=== PATIENT | female | born 1980 | race Caucasian/White ===

== ENCOUNTER → 2023-11-03 06:35 | Day surgery (SDC) | payer OTHER, SELFPAY | LOC: GI 06:35 | PROVIDERS: ATTENDING PHYSICIAN Internal Medicine Gastroenterology | DX: Z12.11 Encounter for screening for malignant neoplasm of colon (principal); K57.30 Diverticulosis of large intestine without perforation or abscess without bleeding; Z83.719 Family history of colon polyps, unspecified | CPT/HCPCS: 45380; 88305 ==

== ENCOUNTER → 2023-11-12 12:24 | Outpatient (REF) | payer OTHER, SELFPAY ==
[2023-11-12 13:20] LABS: % Basophils 0.6 % (0-2); % Eosinophils 0.6 % (0-6); % Immature Granulocytes 0.4 % (0-0.5); % Lymphocytes 16.3 % (20.5-51.1); % Monocytes 6.2 % (1.7-9.3); % Neutrophils 75.9 % (42.2-75.2); Absolute Lymphocytes 1.2 10^3/uL (1.2-3.4); Absolute Monocytes 0.4 10^3/uL (0.1-0.6); Absolute Neutrophils 5.4 10^3/uL (1.4-6.5); Hematocrit 38.8 % (37.0-47.0); Hemoglobin 12.8 g/dL (12.0-16.0); Mean Corpuscular Hgb 28.8 pg (27.0-31.0); Mean Corpuscular Volume 87.4 fL (81.0-99.0); Mean Platelet Volume 11.4 fL (7.4-10.4); Nucleated Red Blood Cells % 0 %; Platelet Count 240 10^3/uL (130-400); Red Blood Cell Count 4.44 10^6/uL (4.20-5.40); Red Cell Dist. Width 12.5 % (11.5-14.5); White Blood Cell Count 7.1 10^3/uL (4.8-10.8)
[2023-11-12 14:37] LABS: ALT (SGPT) 19 U/L (0-35); AST (SGOT) 23 U/L (14-36); Albumin 4.4 g/dl (3.5-5.0); Alkaline Phosphatase 57 U/L (38-126); Blood Urea Nitrogen 16 mg/dl (7-17); Carbon Dioxide 31 mmol/L (22-30); Chloride 98 mmol/L (98-107); Glucose 101 mg/dl (70-99); Potassium 4.1 mmol/L (3.5-5.1); Sodium 136 mmol/L (135-145); Total Bilirubin 0.4 mg/dl (0.2-1.3); Total Protein 7.3 g/dl (6.3-8.2); eGFR > 60.00
[2023-11-14 18:50] LABS: CA 27-29 14.4 U/mL (<=39.0)
== END ==
LOC: REG 12:24
PROVIDERS: ATTENDING PHYSICIAN Internal Medicine Hematology & Oncology
DX: C50.411 Malignant neoplasm of upper-outer quadrant of right female breast (principal)
CPT/HCPCS: 36415; 80053; 85025; 86300

== ENCOUNTER → 2023-11-27 09:15 | Outpatient (REF) | payer OTHER, SELFPAY | LOC: WDC 09:15 | PROVIDERS: ATTENDING PHYSICIAN Internal Medicine Hematology & Oncology; FAMILY PHYSICIAN Family Medicine | DX: C50.411 Malignant neoplasm of upper-outer quadrant of right female breast (principal); Z12.31 Encounter for screening mammogram for malignant neoplasm of breast | CPT/HCPCS: 71260; 74177; 77063; 77067; 78306; A9503; Q9967 ==

== ENCOUNTER 2024-01-25 07:26 | Emergency (ER) | payer OTHER, SELFPAY ==
[2024-01-25 07:34] VITALS: BP 119/69
[2024-01-25 07:44] VITALS: BMI 32.8
[2024-01-25 07:45] VITALS: BP 118/72
--- NOTE | 2024-01-25 07:51 | PTCARENOTE ---
Pt woke up this morning with pressure in right ear; states 'feeling clogged.' Describing pressure and numbness in right ear to jaw; 'like my ears have to pop on an airplane. States feeling of 'clogged' right ear for a few nights when sleeping on
right side.
--- NOTE | 2024-01-25 08:16 | ED.GENMED ---
History of Present Illness
General
Chief Complaint: Ear Problem
Source: patient and spouse
Exam Limitations: none
Time Seen by Provider: 01/25/24 07:44
Nursing documentation reviewed up to this point in time: agreed with
Travel History
Have you had any contact with someone who has COVID-19?: No
Do you have any symptoms of coronavirus? Fever > 100 degrees, chills, cough, shortness of breath, sore throat, loss of taste or smell, muscle aches, or headache?: No
History of Present Illness
History of Present Illness:
43-year-old female with a history as documented presents for evaluation of fullness in the right ear. Patient reports that she woke up this morning and felt like her right ear was clogged. She says she has some sense of fullness in the right side
of her face/anterior to her ear. She says she is having trouble hearing out of the right ear. Came to the emergency room for assessment. She denies any trauma to the ear. She denies any pain in the ear. She denies any other complaints. She
says she has had this issue before in the right ear but says it is usually transient and this morning it does not seem to be going away.
Past History
Past History
ED Past Medical History: Asthma and Cancer
ED Past Surgical History: None
Social History
Tobacco: Non-smoker
Alcohol: None
Drug: None
Review of Systems
Review of Systems
All Other Systems: ROS reviewed and negative except as documented in HPI and ROS
EENT: Reports other (Fullness/hearing loss in the right ear)
Phy Exam
Physical Exam
Physical Exam:
General: Well appearing and non-toxic
HEENT: protecting airway; left TM clear; right ear canal with large cerumen impaction (*UPDATE*: After removal of cerumen impaction patient has some slight retraction but no erythema, no perforation, no fluid in the inner ear on exam of the right TM)
Neck: appears supple
CV: No evidence of cyanosis
Resp: No accessory muscle use
Abd: Non-distended
Extremities: No deformities
Neuro: Alert
Psych: Normal affect
Skin: Intact
Scores
Heart Failure Risk
Heart Failure Risk Score: Not Applicable
Heart Score for Chest Pain Patients
STEMI patient?: Not applicable
Withdrawal Assessment of Alcohol
Withdrawal Assessment Completed?: Not applicable
Course
Vital Signs
Initial and Last Documented VS:
Initial Vital Signs
Temp Pulse Resp BP Pulse Ox
36.7 C 72 16 119/69 98
01/25/24 07:34 01/25/24 07:34 01/25/24 07:34 01/25/24 07:34 01/25/24 07:34
Last Documented Vital Signs
Temp Pulse Resp BP Pulse Ox
36.5 C 69 16 118/72 99
01/25/24 07:45 01/25/24 07:45 01/25/24 07:45 01/25/24 07:45 01/25/24 07:45
Procedures
Foreign Body Removal-Ear
Right External canal:
Tenderness: none
Any local drainage: none
External ear canal cleaned with removal of cerumen using: irrigation
Removal of foreign body using: irrigation
Exam of canal after removal: no inflammation
Additional Information:
Cerumen impaction cleared with irrigation using tepid water
MDM/Problems Addressed
Differential Diagnosis Includes:
Cerumen impaction, middle ear effusion
MDM/Problems Addressed:
43-year-old female presents with sensation of clogged right ear and hearing loss. On exam she was found to have a cerumen impaction. It was cleared with irrigation. After clearing cerumen impaction patient's symptoms completely resolved.
Discharged with instructions to avoid cotton swab use, Debrox as needed. All questions answered.
*Pulse Oximetry
Patient hypoxic: no
*Critical Care Note
Total Time (30-74mins, 75-104mins- exclusive of procedures): Not Applicable
Data Reviewed
Source: patient and spouse
ED Attending Note
-
Portions of this chart may have been created with voice recognition software.� Occasional wrong word or��sound alike� substitutions may have occurred due to the inherent limitations of voice recognition software.
Discharge Plan
Departure
Patient Disposition: Home (Routine Discharge)
Date of Disposition: 01/25/24
Time of Disposition: 08:15
Patient with high blood pressure during this ER visit?: No
Discharge Problem:
Impacted cerumen of right ear
Instructions: Ear wax impaction
Prescriptions:
New
Ear Wax Removal Kit 6.5 % drops
5 drp otic (ear) DAILY 4 Days Qty: 15 0RF
No Action
lorazepam 0.5 MG tablet
1 mg PO HS
cannabidiol [Epidiolex] 1 UNIT solution
1 unit PO HS
albuterol sulfate 1 PUFF HFA aerosol inhaler
2 puff inhalation R Q4HPRN PRN (Reason: asthma)
cetirizine [Zyrtec] 10 MG tablet
10 mg PO DAILY PRN (Reason: allergies)
Referrals:
Jairo Stark MD [Active] - As needed (Ear, nose, and throat doctor)
Activity Restrictions/Additional Instructions:
Thank you for visiting the Emergency Department at [facility].
1. Please schedule a follow up appointment as directed. Call first thing tomorrow morning to make an appointment.
2. If indicated, please take your medications as instructed and indicated on discharge paperwork.
3. If any of your symptoms do not improve, or persist, or become more severe within 6-12 hours, please return to the emergency department for further care.
4. Please return to the emergency department if you develop a headache, neck pain/stiffness, fever greater than 100.4F, chest pain, shortness of breath, persistent nausea, vomiting, slurred speech, difficulty walking, numbness/tingling, weakness,
signs of infection or any other symptoms that are worrisome to you.
Please call [phone] if you have any questions.
Interventions
Interventions:
*Risk Screen - Suicide Last Done: 01/25/24 08:18
*General Assessment Last Done: 01/25/24 08:18
*Neglect/Abuse Screening Last Done: 01/25/24 08:18
ED- Fall Risk Assessment Last Done: 01/25/24 08:18
*ED COVID-19 Vaccine History Last Done: 01/25/24 07:34
*Nursing Disposition Last Done: 01/25/24 08:18
Discharge Date and Time
Print Language: IRANIAN
== END 2024-01-25 08:24 | disposition home or self-care (01) ==
LOC: EMR 07:26
PROVIDERS: EMERGENCY PHYSICIAN Emergency Medicine; FAMILY PHYSICIAN Family Medicine
DX: H61.21 Impacted cerumen, right ear (principal)
CPT/HCPCS: 99283; 69200

== ENCOUNTER → 2024-06-17 07:38 | Outpatient (REF) | payer OTHER, SELFPAY ==
[2024-06-17 08:49] LABS: % Basophils 0.7 % (0-2); % Eosinophils 1.1 % (0-6); % Immature Granulocytes 0.5 % (0-0.5); % Lymphocytes 20.3 % (20.5-51.1); % Monocytes 7.2 % (1.7-9.3); % Neutrophils 70.2 % (42.2-75.2); Absolute Eosinophils 0.1 10^3/uL (0-0.7); Absolute Lymphocytes 0.9 10^3/uL (1.2-3.4); Absolute Monocytes 0.3 10^3/uL (0.1-0.6); Absolute Neutrophils 3.1 10^3/uL (1.4-6.5); Hematocrit 39.3 % (37.0-47.0); Hemoglobin 12.9 g/dL (12.0-16.0); Mean Corp Hgb Conc. 32.8 g/dL (33.0-37.0); Mean Corpuscular Hgb 28.9 pg (27.0-31.0); Mean Corpuscular Volume 88.1 fL (81.0-99.0); Mean Platelet Volume 12.3 fL (7.4-10.4); Nucleated Red Blood Cells % 0 %; Platelet Count 203 10^3/uL (130-400); Red Blood Cell Count 4.46 10^6/uL (4.20-5.40); Red Cell Dist. Width 12.4 % (11.5-14.5); White Blood Cell Count 4.4 10^3/uL (4.8-10.8)
[2024-06-17 09:19] LABS: ALT (SGPT) 17 U/L (0-35); AST (SGOT) 19 U/L (14-36); Albumin 4.6 g/dl (3.5-5.0); Alkaline Phosphatase 49 U/L (38-126); Blood Urea Nitrogen 16 mg/dl (7-17); Calcium 9.7 mg/dl (8.4-10.2); Carbon Dioxide 27 mmol/L (22-30); Chloride 102 mmol/L (98-107); Glucose 121 mg/dl (70-99); Potassium 4.8 mmol/L (3.5-5.1); Sodium 141 mmol/L (135-145); Total Bilirubin 0.3 mg/dl (0.2-1.3); Total Protein 6.9 g/dl (6.3-8.2); eGFR > 60.00
[2024-06-18 22:59] LABS: CA 27-29 23.1 U/mL (<=39.0)
== END ==
LOC: REG 07:38
PROVIDERS: ATTENDING PHYSICIAN Internal Medicine Hematology & Oncology; FAMILY PHYSICIAN Family Medicine
DX: C50.411 Malignant neoplasm of upper-outer quadrant of right female breast (principal)
CPT/HCPCS: 36415; 80053; 85025; 86300

== ENCOUNTER → 2024-07-08 14:14 | Outpatient (REF) | payer OTHER, SELFPAY | LOC: RAD 14:14 | PROVIDERS: ATTENDING PHYSICIAN Nurse Practitioner Adult Health; FAMILY PHYSICIAN Family Medicine | DX: C50.411 Malignant neoplasm of upper-outer quadrant of right female breast (principal) | CPT/HCPCS: 72040; 72072; 72100 ==

== ENCOUNTER → 2024-08-18 07:50 | Outpatient (REF) | payer BC, SELFPAY | LOC: WDC 07:50 | PROVIDERS: ATTENDING PHYSICIAN Family Medicine Geriatric Medicine; FAMILY PHYSICIAN Family Medicine | DX: R92.2 Inconclusive mammogram (principal); R92.30 Dense breasts, unspecified | CPT/HCPCS: 76641 ==

== ENCOUNTER → 2024-09-15 08:32 | Outpatient (REF) | payer OTHER, SELFPAY ==
[2024-09-15 10:32] LABS: Iron 133 ug/dl (37-170)
[2024-09-15 10:41] LABS: Percent Saturation 54 % (20-50); Total Iron Binding Capacity 244 ug/dl (265-497)
[2024-09-15 11:01] LABS: Vitamin D, 25-OH*** 17.5 ng/mL (30-80)
[2024-09-15 11:14] LABS: TSH Reflex To Free T4 2.74 uIU/ml (0.47-4.68)
[2024-09-15 17:20] LABS: Folate 10.1 ng/ml (2.76-20); Vitamin B12 414 pg/ml (239-931)
[2024-09-17 14:35] LABS: CA 27-29 19.1 U/mL (<=39.0)
== END ==
LOC: REG 08:32
PROVIDERS: ATTENDING PHYSICIAN Nurse Practitioner Adult Health; FAMILY PHYSICIAN Family Medicine
DX: C50.411 Malignant neoplasm of upper-outer quadrant of right female breast (principal)
CPT/HCPCS: 36415; 82306; 82607; 82728; 82746; 83540; 83550; 84443; 86300

== ENCOUNTER → 2024-11-14 08:08 | Outpatient (REF) | payer BC, SELFPAY ==
[2024-11-14 09:53] LABS: % Basophils 0.5 % (0-2); % Eosinophils 0.9 % (0-6); % Immature Granulocytes 0.5 % (0-0.5); % Lymphocytes 19.6 % (20.5-51.1); % Monocytes 7.1 % (1.7-9.3); % Neutrophils 71.4 % (42.2-75.2); Absolute Eosinophils 0.1 10^3/uL (0-0.7); Absolute Lymphocytes 1.1 10^3/uL (1.2-3.4); Absolute Monocytes 0.4 10^3/uL (0.1-0.6); Absolute Neutrophils 3.9 10^3/uL (1.4-6.5); Hematocrit 42.1 % (37.0-47.0); Hemoglobin 13.1 g/dL (12.0-16.0); Mean Corp Hgb Conc. 31.1 g/dL (33.0-37.0); Mean Platelet Volume 11.3 fL (7.4-10.4); Nucleated Red Blood Cells % 0 %; Platelet Count 225 10^3/uL (130-400); Red Blood Cell Count 4.68 10^6/uL (4.20-5.40); Red Cell Dist. Width 12.2 % (11.5-14.5); White Blood Cell Count 5.5 10^3/uL (4.8-10.8)
[2024-11-14 10:28] LABS: ALT (SGPT) 15 U/L (0-35); AST (SGOT) 18 U/L (14-36); Albumin 4.5 g/dl (3.5-5.0); Alkaline Phosphatase 62 U/L (38-126); Blood Urea Nitrogen 12 mg/dl (7-17); Carbon Dioxide 31 mmol/L (22-30); Chloride 102 mmol/L (98-107); Glucose 126 mg/dl (70-99); Potassium 4.6 mmol/L (3.5-5.1); Sodium 137 mmol/L (135-145); Total Bilirubin 0.6 mg/dl (0.2-1.3); eGFR > 60.00
[2024-11-15 14:15] LABS: CA 27-29 28.3 U/mL (<=39.0)
== END ==
LOC: RAD 08:08
PROVIDERS: ATTENDING PHYSICIAN Internal Medicine Hematology & Oncology; FAMILY PHYSICIAN Family Medicine; OTHER PHYSICIAN Nurse Practitioner Adult Health
DX: C50.411 Malignant neoplasm of upper-outer quadrant of right female breast (principal)
CPT/HCPCS: 36415; 71260; 74177; 78306; 80053; 85025; 86300; A9503; Q9967

== ENCOUNTER → 2024-12-06 17:59 | Outpatient (REF) | payer BC, SELFPAY | LOC: WDC 17:59 | PROVIDERS: ATTENDING PHYSICIAN Nurse Practitioner Adult Health; FAMILY PHYSICIAN Family Medicine | DX: Z12.31 Encounter for screening mammogram for malignant neoplasm of breast (principal) | CPT/HCPCS: 77063; 77067 ==

== ENCOUNTER → 2024-12-14 08:49 | Outpatient (REF) | payer BC, SELFPAY | LOC: WDC 08:49 | PROVIDERS: ATTENDING PHYSICIAN Nurse Practitioner Adult Health; FAMILY PHYSICIAN Family Medicine | DX: R92.8 Other abnormal and inconclusive findings on diagnostic imaging of breast (principal) | CPT/HCPCS: 76642; 77065 ==

== ENCOUNTER → 2024-12-20 06:40 | Outpatient (REF) | payer BC, SELFPAY | LOC: WDC 06:40 | PROVIDERS: ATTENDING PHYSICIAN Nurse Practitioner Adult Health; FAMILY PHYSICIAN Family Medicine | DX: R92.1 Mammographic calcification found on diagnostic imaging of breast (principal); R92.8 Other abnormal and inconclusive findings on diagnostic imaging of breast | CPT/HCPCS: 88305; 19083; A4648 ==

== ENCOUNTER → 2025-05-30 06:46 | Outpatient (REF) | payer BC, SELFPAY ==
[2025-05-30 07:32] LABS: Hematocrit 38.3 % (37.0-47.0); Hemoglobin 12.1 g/dL (12.0-16.0); Mean Corp Hgb Conc. 31.6 g/dL (33.0-37.0); Mean Corpuscular Volume 86.8 fL (81.0-99.0); Nucleated Red Blood Cells % 0 %; Platelet Count 180 10^3/uL (130-400); Red Cell Dist. Width 12.5 % (11.5-14.5)
[2025-05-30 08:03] LABS: ALT (SGPT) 14 U/L (0-35); AST (SGOT) 16 U/L (14-36); Albumin 4.3 g/dl (3.5-5.0); Alkaline Phosphatase 54 U/L (38-126); Blood Urea Nitrogen 14 mg/dl (7-17); Calcium 9.2 mg/dl (8.4-10.2); Carbon Dioxide 30 mmol/L (22-30); Chloride 104 mmol/L (98-107); Glucose 123 mg/dl (70-99); Potassium 4.4 mmol/L (3.5-5.1); Sodium 137 mmol/L (135-145); Total Protein 6.5 g/dl (6.3-8.2); eGFR > 60.00
[2025-06-01 06:15] LABS: CA 27-29 22.0 U/mL (<=39.0)
== END ==
LOC: REG 06:46
PROVIDERS: ATTENDING PHYSICIAN Internal Medicine Hematology & Oncology; FAMILY PHYSICIAN Family Medicine
DX: C50.411 Malignant neoplasm of upper-outer quadrant of right female breast (principal); R53.82 Chronic fatigue, unspecified
CPT/HCPCS: 36415; 80053; 85025; 86300